=== PATIENT | male | born 1990 | race African-American/Black ===

== ENCOUNTER 2017-11-07 15:07 | Emergency (ER) | payer OTHER ==
[2017-11-07] MEDS: AZITHROMYCIN 250 MG TAB PO (15:54)
[2017-11-07 17:16] LABS: HIV 1&2 SCREEN CENTAUR NEGATIVE (NEGATIVE)
[2017-11-07 17:57] LABS: CHLAMYDIA DNA AMPLIFICATION POSITIVE (NEGATIVE); GC DNA AMPLIFICATION NEGATIVE (NEGATIVE)
[2017-11-09 09:46] LABS: HEPATITIS B SURFACE ANTIBODY POSITIVE (POSITIVE)
[2017-11-09 09:55] LABS: HEPATITIS B SURFACE ANTIGEN NEGATIVE (NEGATIVE)
[2017-11-09 10:23] LABS: HEPATITIS C VIRUS ABY INDEX 0.1 INDEX (<0.8)
== END 2017-11-07 16:20 | disposition home or self-care (01) ==
LOC: M ED 15:07
DX: Z20.2 Contact with and (suspected) exposure to infections with a predominantly sexual mode of transmission (principal); Z88.0 Allergy status to penicillin
CPT/HCPCS: 86706